=== PATIENT | male | born 1995 | race Caucasian/White ===

== ENCOUNTER 2017-03-11 13:04 | Emergency (ER) | payer BC ==
[~2017-03-11] VITALS: Ht 170.2 cm; Wt 68.8 kg
[2017-03-11 13:07] VITALS: BP 117/67; PULSE 75; TEMP 36.8; O2SAT 97; Ht 170.2 cm; Wt 68.8 kg
--- NOTE | 2017-03-11 13:26 | EMERGENCY ROOM VISIT NOTE ---
ED Visit Note First contact with patient: 13:10 CHIEF COMPLAINT: Right ring Finger injury HISTORY OF PRESENT ILLNESS: This 22-year-old male patient presents to the emergency department 2 days after injuring the right ring finger while playing basketball. The patient states he jammed the finger when a basketball hit the tip of the finger. The patient is concerned because he is in [facility], and states he needs a doctor's note if he has any limitations or injuries. The patient spent yesterday resting, and had the finger sesar taped since the injury occurred. The patient states the discomfort feels the same today as it did yesterday, so he felt he needed to have it evaluated at this time. The patient reports no limitation in movement, however states movement and palpation increases the pain. The pain is located in the DIP joint. The patient rates the pain as sharp and 3/10. The patient has full range of motion of the finger. No numbness or tingling. No lacerations. No other injuries. The patient has not had previous fracture to this finger. The patient has taken ibuprofen intermittently for the pain. REVIEW OF SYSTEMS: A 6 system review of systems was completed with positives and pertinent negatives in the HPI. ALLERGIES: None MEDICATIONS: None PMH: None SOCIAL HISTORY: The patient is a [email or web address] student. He is from [place]. The patient denies drug, alcohol, tobacco use. PHYSICAL EXAM: Vital Signs: Reviewed Nurse's notes, vital signs stable. GENERAL : This is an otherwise healthy 22-year-old white male, in no acute distress, but appears to be in pain, well-developed, well-nourished. MUSCULOSKELETAL: There is no deformity of the right fourth finger, but there is some swelling and bruising. The patient has full flexion and extension of the right fourth finger and strength to resistance is 5/5. The DIP joint is maximally tender. There is no ligamentous instability. There is no laceration. Capillary refill less than 2 seconds. No tenderness of the remaining fingers or hand. Full range of motion of the wrist. NEURO: Alert and oriented to person, place, and time. Normal sensation to light and sharp touch. RADIOLOGY: X-ray right fourth finger: FINDINGS: There is focal cortical step-off and linear lucency involving the dorsal aspect of the fourth distal phalangeal base. Mild associated soft tissue swelling. No dislocation. IMPRESSION: Subtle cortical irregularity and lucency involving the dorsal aspect of the fourth distal phalangeal base suggests acute fracture. EMERGENCY DEPARTMENT COURSE: I examined the patient. An x-ray of the right fourth finger was reviewed by myself and radiologist and showed acute fracture of distal phalangeal base. The finger was immobiziled by a finger splint under my direction and the position was satisfactory. Neurovascular status rechecked and intact. The patient was discharged home in good condition. DIFFERENTIAL DIAGNOSIS: Contusion, fracture, sprain, and others DIAGNOSIS: distal phalange fracture of 4th digit DISCHARGE INSTRUCTIONS: ORTHOPEDIC INSTRUCTIONS: Ibuprofen(Motrin, Advil) may be used for fever or pain. Use 600mg every six hours as needed. Take with food. Avoid using more than 2400mg in a 24 hour period. Do not use 2400mg per day for more than three consecutive days without physician direction. Prolonged inappropriate use can lead to stomach upset or ulcers. (AND/OR) Acetaminophen(Tylenol) may be used for fever or pain. Use 1000mg every six hours as needed. Avoid using more than 3000mg in a 24 hour period. Ice compresses for 20 minutes at a time four times daily for 2-3 days. Rest and elevate your injury. Do not get the splint wet. You may remove it to shower and/or when pain has improved. If your splint feels excessively tight, you have worsening pain, develop numbness or tingling, or your digits appear blue, loosen the tape. If your symptoms are not quickly relieved return to the ER for re-evaluation. Return to the ER immediately for any numbness, tingling, severe pain, extreme swelling in the extremity or as needed. Call [facility], [phone], this week, if [facility] recommends ortho follow -up, to arrange follow up for your injury. Follow-up with your primary care physician or [facility] in 2 to 3 days for a recheck of your current condition. Current/Historical Medications No Active Prescriptions or Reported Meds Allergies Coded Allergies: No Known Allergies (Unverified , 03/11/17) Vital Signs Date Time Temp Pulse Resp B/P (MAP) Pulse Ox O2 Delivery O2 Flow Rate FiO2 03/11/17 13:07 36.8 75 16 117/67 97 Room Air Departure Information Impression Primary Impression: Fracture of distal phalanx of finger of right hand Dispostion Home / Self-Care Condition GOOD Prescriptions No Active Prescriptions or Reported Meds Referrals No Doctor, Assigned (PCP) Anoop Goodman, [facility] Patient Instructions ED Fx Finger Closed, My [facility] Additional Instructions ORTHOPEDIC INSTRUCTIONS: Ibuprofen(Motrin, Advil) may be used for fever or pain. Use 600mg every six hours as needed. Take with food. Avoid using more than 2400mg in a 24 hour period. Do not use 2400mg per day for more than three consecutive days without physician direction. Prolonged inappropriate use can lead to stomach upset or ulcers. (AND/OR) Acetaminophen(Tylenol) may be used for fever or pain. Use 1000mg every six hours as needed. Avoid using more than 3000mg in a 24 hour period. Ice compresses for 20 minutes at a time four times daily for 2-3 days. Rest and elevate your injury. Do not get the splint wet. You may remove it to shower and/or when pain has improved. If your splint feels excessively tight, you have worsening pain, develop numbness or tingling, or your digits appear blue, loosen the tape. If your symptoms are not quickly relieved return to the ER for re-evaluation. Return to the ER immediately for any numbness, tingling, severe pain, extreme swelling in the extremity or as needed. Call [facility], [phone], this week, if [facility] recommends ortho follow -up, to arrange follow up for your injury. Follow-up with your primary care physician or S in 2 to 3 days for a recheck of your current condition. Work Instructions Return To Work: 1 day Additional Work Instructions: No heavy lifting with right hand until cleared by [facility] or orthopedics.
--- NOTE | 2017-03-11 13:50 | DIAGNOSTIC IMAGING REPORT ---
RIGHT FINGER(S) MIN 2 VIEWS ROUTINE HISTORY: 22 years-old Male jammed right ring finger playing basketball, pain in DIP Right acute right fourth digit pain, most pronounced within the DIP joint status post injury. Initial exam. COMPARISON: None available. TECHNIQUE: 3 views of the right fourth digit. FINDINGS: There is focal cortical step-off and linear lucency involving the dorsal aspect of the fourth distal phalangeal base. Mild associated soft tissue swelling. No dislocation. IMPRESSION: Subtle cortical irregularity and lucency involving the dorsal aspect of the fourth distal phalangeal base suggests acute fracture. The above report was generated using voice recognition software. It may contain grammatical, syntax or spelling errors. Electronically signed by: Dean Campbell M.D. 03/11/2017 1:49 PM Dictated Date/Time: 03/11/2017 1:46 PM
== END 2017-03-11 14:32 | disposition home or self-care (01) ==
LOC: C.EDB 13:06 → C.EDD 14:32
DX: S62.664A Nondisplaced fracture of distal phalanx of right ring finger, initial encounter for closed fracture (principal); W21.05XA Struck by basketball, initial encounter; Y92.310 Basketball court as the place of occurrence of the external cause; Y93.67 Activity, basketball